=== PATIENT | male | born 1975 | race Caucasian/White ===

== ENCOUNTER 2023-07-18 20:08 | Inpatient (IN) | payer MEDICAID ==
[~2023-07-18] VITALS: Ht 175.3 cm; Wt 69.1 kg
[2023-07-18 21:24] LABS: BASOPHILS # (AUTO) 0.1 X10'3 (0-0.2); BASOPHILS % (AUTO) 0.9 % (0-1); EOSINOPHILS # (AUTO) 0.1 X10'3 (0-0.9); EOSINOPHILS % (AUTO) 1.1 % (0-6); LYMPHOCYTES # (AUTO) 0.5 X10'3 (1.1-4.8); LYMPHOCYTES % (AUTO) 3.7 % (21-51); MEAN CORPUSCULAR HEMOGLOBIN 28.9 PG (27.0-31.0); MEAN CORPUSCULAR VOLUME 90.4 FL (78-98); MEAN PLATELET VOLUME 7.6 FL (7.4-10.4); MONOCYTES # (AUTO) 0.7 X10'3 (0-0.9); MONOCYTES % (AUTO) 4.9 % (2-12); NEUTROPHILS # (AUTO) 11.9 X10'3 (1.8-7.7); NEUTROPHILS % (AUTO) 89.4 % (42-75); PLATELET COUNT 283 X10'3 (140-440); RED BLOOD COUNT 2.43 X10'6 (4.70-6.10); RED CELL DISTRIBUTION WIDTH 16.8 % (11.5-14.5); WHITE BLOOD COUNT 13.3 X10'3 (4.5-11.0)
[2023-07-18 21:28] LABS: HEMATOCRIT 21.9 % (42.0-52.0)
[2023-07-18 21:40] LABS: ALANINE AMINOTRANSFERASE 19 U/L (12-78); ALBUMIN 2.1 G/DL (3.4-5.0); ALBUMIN/GLOBULIN RATIO 0.6 (1.1-1.5); ALKALINE PHOSPHATASE 58 IU/L (46-116); ANION GAP 10 (8-16); ASPARTATE AMINO TRANSFERASE 25 U/L (10-37); BILIRUBIN,TOTAL 0.4 MG/DL (0.1-1.0); BLOOD UREA NITROGEN 51 MG/DL (7-18); BUN/CREATININE RATIO 6.7 (10.0-20.0); CALCIUM 8.2 MG/DL (8.5-10.1); CHLORIDE 98 MMOL/L (99-107); CREATININE 7.61 MG/DL (0.60-1.10); GLUCOSE 141 MG/DL (70-104); MAGNESIUM 1.9 MG/DL (1.5-2.4); PHOSPHORUS 4.7 MG/DL (2.3-4.5); POTASSIUM 4.5 MMOL/L (3.5-5.1); SODIUM 134 MMOL/L (135-145); TOTAL CARBON DIOXIDE 25.6 MMOL/L (24-32); TOTAL PROTEIN 5.9 G/DL (6.4-8.2); eCRCL 11 ML/MIN; eGFR 8 ML/MIN
[2023-07-19] VITALS (9 sets, daily range): BP systolic 104–149; BP diastolic 42–80; PULSE 68–96; RESP 9–19; TEMP 97.6–97.9; O2SAT 95–100
[2023-07-19] MEDS ORDERED: diphenhydrAMINE 50 mg/ml inj IV PRN (00:55)
[2023-07-19] MEDS ORDERED: diphenhydrAMINE 25mg capsule PO PRN (00:55)
[2023-07-19] MEDS ORDERED: acetaminophen 325mg tablet PO PRN ×2 (00:55)
[2023-07-19] MEDS ORDERED: morphine 2 MG/ML inj. syringe IV PRN (00:55)
[2023-07-19] MEDS ORDERED: ondansetron/PF 4mg/2ml inj IV PRN (00:55)
[2023-07-19] MEDS ORDERED: magnesium hydroxide 30ml (MOM) UD suspension PO PRN (00:55)
[2023-07-19] MEDS ORDERED: normal saline 1000ml 1,000 ML IV SCH (00:55)
[2023-07-19] MEDS ORDERED: metoclopramide 5 mg/ml inj IV PRN (00:55)
[2023-07-19] MEDS ORDERED: mag hydrox/Alum hydrox/simeth 30ml oral suspension PO PRN (00:55)
[2023-07-19] MEDS ORDERED: acetaminophen 650mg rectal suppository RC PRN (00:55)
[2023-07-19] MEDS ORDERED: ondansetron 4mg rapidly disintigrating tab PO PRN (00:55)
[2023-07-19] MEDS ORDERED: [UNRECOGNIZED DRUG - REMARK] IM ONE (03:00)
[2023-07-19] MEDS ORDERED: piperacillin/tazo 4.5gm/100ml 100 ML IV SCH (04:00)
[2023-07-19] MEDS: pantoprazole 40mg Tablet.DR PO SCH ×2 (07:03→08:07)
[2023-07-19] MEDS: docusate sod 100mg capsule PO SCH ×2 (07:03→20:00)
[2023-07-19] MEDS ORDERED: vancomycin/NS 1 GM ADD-VANTAGE 250 ML IV SCH (08:00)
[2023-07-19] MEDS: heparin, porcine 5000 units/ml vial SQ SCH ×2 (08:08→21:17)
[2023-07-19 08:27] LABS: APTT 33 SECONDS (22-32); INR 1.1 INR; PROTHROMBIN TIME 11.5 SECONDS (9.0-12.0)
[2023-07-19 08:37] LABS: C DIFF ANTIGEN POSITIVE (NEGATIVE); C DIFF SPECIMEN=DIARRHEA? ACCEPTABLE; C DIFFICILE TOXINS A&B POSITIVE (Neg)
[2023-07-19 08:41] LABS: MAGNESIUM 2.1 MG/DL (1.5-2.4); PHOSPHORUS 5.8 MG/DL (2.3-4.5)
[2023-07-19 08:55] LABS: HEMOGLOBIN A1C 5.7 % (4.5-6.2)
[2023-07-19 09:03] LABS: PRO BRAIN NATRIURETIC PEPTIDE > 30000 PG/ML (0-125)
[2023-07-19 09:34] LABS: ALANINE AMINOTRANSFERASE 19 U/L (12-78); ALBUMIN 2.2 G/DL (3.4-5.0); ALBUMIN/GLOBULIN RATIO 0.5 (1.1-1.5); ALKALINE PHOSPHATASE 64 IU/L (46-116); ASPARTATE AMINO TRANSFERASE 22 U/L (10-37); BILIRUBIN,TOTAL 0.4 MG/DL (0.1-1.0); BLOOD UREA NITROGEN 56 MG/DL (7-18); CALCIUM 8.6 MG/DL (8.5-10.1); CREATININE 8.05 MG/DL (0.60-1.10); GLUCOSE 132 MG/DL (70-104); TOTAL CARBON DIOXIDE 23.8 MMOL/L (24-32); TOTAL PROTEIN 6.5 G/DL (6.4-8.2); eCRCL 11 ML/MIN; eGFR 7 ML/MIN
[2023-07-19 10:14] LABS: ANION GAP 10 (8-16); CHLORIDE 99 MMOL/L (99-107); POTASSIUM 4.3 MMOL/L (3.5-5.1); SODIUM 133 MMOL/L (135-145)
[2023-07-19] MEDS ORDERED: VANCOMYCIN 125 MG/5 ML oral SOLN.RECON 5mL UD syringe (FIRVANQ) PO SCH (10:50)
[2023-07-19] MEDS ORDERED: heparin 1,000unit/ml 10ml vial 10 ML IV ONE (10:55)
[2023-07-19] MEDS ORDERED: EPOETIN ALFA-EPBX 20,000 UNIT/ML 1 ML MDV IV ONE (10:55)
[2023-07-19] MEDS ORDERED: albumin (human) 25% 100ml IV 100 ML IV PRN (10:55)
[2023-07-19] MEDS ORDERED: heparin 1,000 units/ml 10ml inj HE ONE ×2 (11:00)
[2023-07-19] MEDS ORDERED: dextrose 50%-water 50ml dispensing syringe IV PRN ×2 (11:20)
[2023-07-19] MEDS ORDERED: insulin Lispro (HumaLOG) vial - multi-dose SQ SCH (11:20)
[2023-07-19] MEDS ORDERED: vancomycin/NS 1 GM ADD-VANTAGE 250 ML IV PRN (11:20)
[2023-07-19] MEDS ORDERED: DEXTROSE 15 GM of carb/4 tabs (each vial/BOTTLE has 4 tablets) PO PRN ×2 (11:20)
[2023-07-19] MEDS ORDERED: glucagon, human recombinant 1mg kit SUBCUT PRN (11:20)
[2023-07-19] MEDS ORDERED: MESSAGE TO PHARMACY PO ONE (11:20)
[2023-07-19 11:50] LABS: BASOPHILS # (AUTO) 0.1 X10'3 (0-0.2); BASOPHILS % (AUTO) 1.2 % (0-1); HEMATOCRIT 28.1 % (42.0-52.0); LYMPHOCYTES # (AUTO) 0.7 X10'3 (1.1-4.8); LYMPHOCYTES % (AUTO) 6.5 % (21-51); MEAN CORPUSCULAR HEMOGLOBIN 29.3 PG (27.0-31.0); MEAN CORPUSCULAR HGB CONC 32.5 g/dL (33.0-36.5); MEAN CORPUSCULAR VOLUME 90.2 FL (78-98); MONOCYTES # (AUTO) 0.4 X10'3 (0-0.9); MONOCYTES % (AUTO) 4.1 % (2-12); NEUTROPHILS # (AUTO) 8.7 X10'3 (1.8-7.7); NEUTROPHILS % (AUTO) 79.2 % (42-75); PLATELET COUNT 318 X10'3 (140-440); RED BLOOD COUNT 3.12 X10'6 (4.70-6.10); RED CELL DISTRIBUTION WIDTH 16.8 % (11.5-14.5); WHITE BLOOD COUNT 10.9 X10'3 (4.5-11.0)
[2023-07-19 11:52] LABS: HEMOGLOBIN 9.1 g/dl (14.0-17.9)
[2023-07-19] MEDS ORDERED: temazepam 15mg capsule PO PRN (21:00)
[2023-07-19] MEDS: insulin glargine (Lantus) pen - multi-dose SQ SCH (21:00)
[2023-07-19] MEDS: VANCOMYCIN 125 MG/5 ML oral SOLN.RECON 5mL UD syringe (FIRVANQ) PO SCH (21:17)
[2023-07-19] MEDS: HYDROcodone/acetaminophen 5mg/325mg tablet PO PRN (21:19)
[2023-07-20] MEDS: VANCOMYCIN 125 MG/5 ML oral SOLN.RECON 5mL UD syringe (FIRVANQ) PO SCH ×4 (02:00→20:10)
[2023-07-20 06:30] VITALS: BP 140/48; PULSE 98; RESP 14; TEMP 97.8; O2SAT 99
[2023-07-20 07:20] LABS: BASOPHILS # (AUTO) 0.1 X10'3 (0-0.2); BASOPHILS % (AUTO) 1.6 % (0-1); EOSINOPHILS # (AUTO) 1.4 X10'3 (0-0.9); EOSINOPHILS % (AUTO) 21.3 % (0-6); HEMATOCRIT 26.3 % (42.0-52.0); HEMOGLOBIN 8.6 g/dl (14.0-17.9); LYMPHOCYTES # (AUTO) 0.7 X10'3 (1.1-4.8); LYMPHOCYTES % (AUTO) 11.1 % (21-51); MEAN CORPUSCULAR HEMOGLOBIN 29.3 PG (27.0-31.0); MEAN CORPUSCULAR HGB CONC 32.6 g/dL (33.0-36.5); MEAN CORPUSCULAR VOLUME 89.8 FL (78-98); MEAN PLATELET VOLUME 8.1 FL (7.4-10.4); MONOCYTES # (AUTO) 0.5 X10'3 (0-0.9); MONOCYTES % (AUTO) 7.6 % (2-12); NEUTROPHILS # (AUTO) 3.7 X10'3 (1.8-7.7); NEUTROPHILS % (AUTO) 58.4 % (42-75); PLATELET COUNT 255 X10'3 (140-440); RED BLOOD COUNT 2.93 X10'6 (4.70-6.10); RED CELL DISTRIBUTION WIDTH 16.9 % (11.5-14.5); WHITE BLOOD COUNT 6.4 X10'3 (4.5-11.0)
[2023-07-20 07:56] LABS: ALANINE AMINOTRANSFERASE 18 U/L (12-78); ALBUMIN 1.9 G/DL (3.4-5.0); ALBUMIN/GLOBULIN RATIO 0.5 (1.1-1.5); ALKALINE PHOSPHATASE 53 IU/L (46-116); ANION GAP 8 (8-16); ASPARTATE AMINO TRANSFERASE 27 U/L (10-37); BILIRUBIN,TOTAL 0.2 MG/DL (0.1-1.0); BLOOD UREA NITROGEN 28 MG/DL (7-18); BUN/CREATININE RATIO 5.3 (10.0-20.0); CALCIUM 8.5 MG/DL (8.5-10.1); CHLORIDE 103 MMOL/L (99-107); CHOL/HDL RATIO 3.2 (0.00-4.99); CHOLESTEROL 101 MG/DL (0-200); CREATININE 5.33 MG/DL (0.60-1.10); GLUCOSE 126 MG/DL (70-104); HDL CHOLESTEROL 32 MG/DL (35-60); LDL CHOLESTEROL 44 MG/DL (50-100); POTASSIUM 4.4 MMOL/L (3.5-5.1); SODIUM 138 MMOL/L (135-145); TOTAL CARBON DIOXIDE 26.7 MMOL/L (24-32); TOTAL PROTEIN 6.1 G/DL (6.4-8.2); TRIGLYCERIDES 108 MG/DL (20-135); eCRCL 16 ML/MIN; eGFR 12 ML/MIN
[2023-07-20] MEDS: heparin, porcine 5000 units/ml vial SQ SCH ×2 (08:00→20:09)
[2023-07-20] MEDS: docusate sod 100mg capsule PO SCH ×2 (08:00→19:58)
[2023-07-20] MEDS: pantoprazole 40mg Tablet.DR PO SCH (10:30)
[2023-07-20] MEDS: HYDROcodone/acetaminophen 5mg/325mg tablet PO PRN (10:31)
[2023-07-20 10:45] VITALS: BP 142/71; PULSE 100; RESP 12; TEMP 97.6; O2SAT 99
[2023-07-20 10:54] LABS: TOTAL CELLS COUNTED 100
[2023-07-20 10:55] LABS: ANISOCYTOSIS 1+; PLATELET ESTIMATE NORMAL
[2023-07-20 15:00] VITALS: BP 140/79; PULSE 103; RESP 14; TEMP 97.6; O2SAT 98
[2023-07-20] MEDS ORDERED: METO10TA3 PO (16:22)
[2023-07-20] MEDS ORDERED: PANT40TA54 PO (16:22)
[2023-07-20] MEDS ORDERED: HYDR100T27 PO (16:22)
[2023-07-20] MEDS ORDERED: GABA800T11 PO (16:22)
[2023-07-20] MEDS ORDERED: HYDR-3973 PO (16:22)
[2023-07-20] MEDS ORDERED: PREG200C29 PO (16:22)
[2023-07-20] MEDS ORDERED: AMIT50TA15 PO (16:22)
[2023-07-20] MEDS ORDERED: INSU100V49 SQ (16:22)
[2023-07-20] MEDS ORDERED: HYDR-3927 PO (16:22)
[2023-07-20] MEDS ORDERED: ATOR40TA72 PO (16:22)
[2023-07-20] MEDS ORDERED: INSU100I31 SQ (16:22)
[2023-07-20] MEDS ORDERED: FLUO-167 PO (16:22)
[2023-07-20] MEDS ORDERED: CLOP75TA34 PO (16:22)
[2023-07-20] MEDS ORDERED: ALBU18HF2 INH (16:22)
[2023-07-20] MEDS ORDERED: ASPI-1397 PO (16:22)
[2023-07-20] MEDS ORDERED: METO50TA16 (16:47)
[2023-07-20] MEDS ORDERED: PHO667C PO (16:47)
[2023-07-20] MEDS ORDERED: SACU1TAB7 PO (16:47)
[2023-07-20] MEDS ORDERED: CLON0.1T2 PO (16:47)
[2023-07-20 18:00] VITALS: BP 145/78; PULSE 70; RESP 20; TEMP 97.8; O2SAT 92
[2023-07-20] MEDS ORDERED: pantoprazole 40mg Tablet.DR PO SCH (18:05)
[2023-07-20] MEDS ORDERED: albuterol 2.5 MG/3 ML nebule NEB PRN (18:05)
[2023-07-20] MEDS: sacubitril/valsartan 49mg-51mg tablet PO SCH (20:10)
[2023-07-20] MEDS: clopidogrel 75mg tablet PO SCH (20:10)
[2023-07-20] MEDS: insulin glargine (Lantus) pen - multi-dose SQ SCH (21:00)
[2023-07-20] MEDS: amitriptyline 50mg tablet PO SCH (21:00)
[2023-07-20] MEDS: atorvastatin 20mg tablet PO SCH (21:00)
[2023-07-20 22:00] VITALS: BP 145/89; PULSE 80; RESP 20; TEMP 97.8; O2SAT 96
[2023-07-21] VITALS (14 sets, daily range): BP systolic 100–152; BP diastolic 73–92; PULSE 100–118; RESP 14–18; TEMP 97.4–99.3; O2SAT 94–100
[2023-07-21] MEDS: VANCOMYCIN 125 MG/5 ML oral SOLN.RECON 5mL UD syringe (FIRVANQ) PO SCH ×4 (01:28→19:34)
[2023-07-21] MEDS: VANCOMYCIN LEVEL IV SCH (03:00)
[2023-07-21] MEDS: docusate sod 100mg capsule PO SCH ×2 (08:00→19:36)
[2023-07-21] MEDS ORDERED: albumin (human) 25% 100ml IV 100 ML IV PRN (08:00)
[2023-07-21] MEDS ORDERED: heparin 1,000unit/ml 10ml vial 10 ML IV ONE (08:00)
[2023-07-21] MEDS: sacubitril/valsartan 49mg-51mg tablet PO SCH ×2 (08:00→19:35)
[2023-07-21] MEDS ORDERED: EPOETIN ALFA-EPBX 20,000 UNIT/ML 1 ML MDV IV ONE (08:00)
[2023-07-21] MEDS: aspirin 81mg, enteric-coated 1 TAB TABLET.DR PO SCH (08:06)
[2023-07-21] MEDS: pantoprazole 40mg Tablet.DR PO SCH (08:06)
[2023-07-21] MEDS: heparin, porcine 5000 units/ml vial SQ SCH ×2 (08:06→19:31)
[2023-07-21] MEDS: clopidogrel 75mg tablet PO SCH (08:06)
[2023-07-21] MEDS: FLUoxetine 20mg capsule PO SCH (08:06)
[2023-07-21 08:19] LABS: BASOPHILS # (AUTO) 0.1 X10'3 (0-0.2); BASOPHILS % (AUTO) 1.5 % (0-1); EOSINOPHILS # (AUTO) 1.4 X10'3 (0-0.9); EOSINOPHILS % (AUTO) 19.7 % (0-6); HEMATOCRIT 25.1 % (42.0-52.0); HEMOGLOBIN 8.2 g/dl (14.0-17.9); LYMPHOCYTES # (AUTO) 1.2 X10'3 (1.1-4.8); MEAN CORPUSCULAR HEMOGLOBIN 29.2 PG (27.0-31.0); MEAN CORPUSCULAR HGB CONC 32.7 g/dL (33.0-36.5); MEAN CORPUSCULAR VOLUME 89.3 FL (78-98); MEAN PLATELET VOLUME 8.6 FL (7.4-10.4); MONOCYTES # (AUTO) 0.8 X10'3 (0-0.9); MONOCYTES % (AUTO) 11.5 % (2-12); NEUTROPHILS # (AUTO) 3.6 X10'3 (1.8-7.7); NEUTROPHILS % (AUTO) 50.3 % (42-75); PLATELET COUNT 214 X10'3 (140-440); RED BLOOD COUNT 2.81 X10'6 (4.70-6.10); RED CELL DISTRIBUTION WIDTH 16.9 % (11.5-14.5); WHITE BLOOD COUNT 7.1 X10'3 (4.5-11.0)
[2023-07-21 08:34] LABS: ALANINE AMINOTRANSFERASE 15 U/L (12-78); ALBUMIN 1.8 G/DL (3.4-5.0); ALBUMIN/GLOBULIN RATIO 0.4 (1.1-1.5); ALKALINE PHOSPHATASE 47 IU/L (46-116); ANION GAP 10 (8-16); ASPARTATE AMINO TRANSFERASE 18 U/L (10-37); BILIRUBIN,TOTAL 0.3 MG/DL (0.1-1.0); BLOOD UREA NITROGEN 35 MG/DL (7-18); BUN/CREATININE RATIO 5.8 (10.0-20.0); CALCIUM 8.4 MG/DL (8.5-10.1); CHLORIDE 103 MMOL/L (99-107); CREATININE 6.08 MG/DL (0.60-1.10); GLUCOSE 113 MG/DL (70-104); SODIUM 136 MMOL/L (135-145); TOTAL CARBON DIOXIDE 23.4 MMOL/L (24-32); VANCOMYCIN,RANDOM 13.4 ug/mL (20.0-30.0); eCRCL 14 ML/MIN; eGFR 10 ML/MIN
[2023-07-21 08:35] LABS: POTASSIUM 4.9 MMOL/L (3.5-5.1)
[2023-07-21] MEDS ORDERED: heparin 1,000 units/ml 10ml inj HE ONE ×2 (08:55)
[2023-07-21] MEDS ORDERED: vancomycin/NS 1 GM ADD-VANTAGE 250 ML IV ONE (09:55)
[2023-07-21 12:56] LABS: HBSAG SCREEN Negative (Negative)
[2023-07-21] MEDS: HYDROcodone/acetaminophen 5mg/325mg tablet PO PRN (19:33)
[2023-07-21] MEDS: insulin glargine (Lantus) pen - multi-dose SQ SCH (21:00)
[2023-07-21] MEDS: amitriptyline 50mg tablet PO SCH (21:35)
[2023-07-21] MEDS: atorvastatin 20mg tablet PO SCH (21:36)
[2023-07-22] VITALS (8 sets, daily range): BP systolic 100–159; BP diastolic 70–96; PULSE 94–105; RESP 12–18; TEMP 97.4–99.2; O2SAT 97–99
[2023-07-22] MEDS: VANCOMYCIN 125 MG/5 ML oral SOLN.RECON 5mL UD syringe (FIRVANQ) PO SCH ×4 (01:43→21:50)
[2023-07-22] MEDS: HYDROcodone/acetaminophen 5mg/325mg tablet PO PRN ×2 (01:49→21:50)
[2023-07-22 06:32] LABS: BASOPHILS # (AUTO) 0.1 X10'3 (0-0.2); BASOPHILS % (AUTO) 1.9 % (0-1); EOSINOPHILS # (AUTO) 1.2 X10'3 (0-0.9); EOSINOPHILS % (AUTO) 18.7 % (0-6); HEMATOCRIT 26.5 % (42.0-52.0); HEMOGLOBIN 8.4 g/dl (14.0-17.9); LYMPHOCYTES # (AUTO) 1.2 X10'3 (1.1-4.8); MEAN CORPUSCULAR HEMOGLOBIN 28.6 PG (27.0-31.0); MEAN CORPUSCULAR HGB CONC 31.8 g/dL (33.0-36.5); MEAN CORPUSCULAR VOLUME 90.1 FL (78-98); MEAN PLATELET VOLUME 8.4 FL (7.4-10.4); MONOCYTES # (AUTO) 0.7 X10'3 (0-0.9); NEUTROPHILS # (AUTO) 3.3 X10'3 (1.8-7.7); NEUTROPHILS % (AUTO) 50.4 % (42-75); PLATELET COUNT 193 X10'3 (140-440); RED BLOOD COUNT 2.94 X10'6 (4.70-6.10); RED CELL DISTRIBUTION WIDTH 16.8 % (11.5-14.5); WHITE BLOOD COUNT 6.5 X10'3 (4.5-11.0)
[2023-07-22 07:17] LABS: ALANINE AMINOTRANSFERASE 11 U/L (12-78); ALBUMIN 1.9 G/DL (3.4-5.0); ALBUMIN/GLOBULIN RATIO 0.4 (1.1-1.5); ALKALINE PHOSPHATASE 51 IU/L (46-116); ANION GAP 8 (8-16); ASPARTATE AMINO TRANSFERASE 30 U/L (10-37); BILIRUBIN,TOTAL 0.2 MG/DL (0.1-1.0); BLOOD UREA NITROGEN 24 MG/DL (7-18); BUN/CREATININE RATIO 5.3 (10.0-20.0); CALCIUM 8.7 MG/DL (8.5-10.1); CHLORIDE 103 MMOL/L (99-107); CREATININE 4.53 MG/DL (0.60-1.10); GLUCOSE 121 MG/DL (70-104); POTASSIUM 4.8 MMOL/L (3.5-5.1); SODIUM 137 MMOL/L (135-145); TOTAL CARBON DIOXIDE 25.9 MMOL/L (24-32); TOTAL PROTEIN 6.3 G/DL (6.4-8.2); VANCOMYCIN,RANDOM 23.1 ug/mL (20.0-30.0); eCRCL 19 ML/MIN; eGFR 14 ML/MIN
[2023-07-22 08:21] LABS: % IRON SATURATION 40 % (11-46); IRON 53 UG/DL (53-167); TOTAL IRON BINDING CAPACITY 133 UG/DL (259-388)
[2023-07-22] MEDS: VANCOMYCIN LEVEL IV SCH (08:24)
[2023-07-22] MEDS ORDERED: docusate sod 100mg capsule PO PRN (08:25)
[2023-07-22 09:26] LABS: FERRITIN 568 NG/ML (26-388)
[2023-07-22] MEDS: sacubitril/valsartan 49mg-51mg tablet PO SCH ×2 (10:42→19:52)
[2023-07-22] MEDS: heparin, porcine 5000 units/ml vial SQ SCH ×2 (10:42→21:50)
[2023-07-22] MEDS: aspirin 81mg, enteric-coated 1 TAB TABLET.DR PO SCH (10:43)
[2023-07-22] MEDS: clopidogrel 75mg tablet PO SCH (10:43)
[2023-07-22] MEDS: pantoprazole 40mg Tablet.DR PO SCH (10:43)
[2023-07-22] MEDS: FLUoxetine 20mg capsule PO SCH (10:43)
[2023-07-22] MEDS: insulin glargine (Lantus) pen - multi-dose SQ SCH (19:51)
[2023-07-22] MEDS: amitriptyline 50mg tablet PO SCH (21:49)
[2023-07-22] MEDS: atorvastatin 20mg tablet PO SCH (21:49)
[2023-07-23] VITALS (16 sets, daily range): BP systolic 92–154; BP diastolic 54–91; PULSE 90–118; RESP 10–18; TEMP 97.3–98.4; O2SAT 97–100
[2023-07-23] MEDS: VANCOMYCIN 125 MG/5 ML oral SOLN.RECON 5mL UD syringe (FIRVANQ) PO SCH ×4 (02:13→20:30)
[2023-07-23] MEDS: VANCOMYCIN LEVEL IV SCH (03:00)
[2023-07-23 06:47] LABS: BASOPHILS # (AUTO) 0.1 X10'3 (0-0.2); BASOPHILS % (AUTO) 1.9 % (0-1); EOSINOPHILS # (AUTO) 1.4 X10'3 (0-0.9); HEMATOCRIT 27.1 % (42.0-52.0); HEMOGLOBIN 8.4 g/dl (14.0-17.9); LYMPHOCYTES # (AUTO) 1.2 X10'3 (1.1-4.8); LYMPHOCYTES % (AUTO) 15.1 % (21-51); MEAN CORPUSCULAR HEMOGLOBIN 28.7 PG (27.0-31.0); MEAN CORPUSCULAR HGB CONC 30.9 g/dL (33.0-36.5); MEAN CORPUSCULAR VOLUME 92.6 FL (78-98); MEAN PLATELET VOLUME 8.7 FL (7.4-10.4); MONOCYTES # (AUTO) 0.7 X10'3 (0-0.9); MONOCYTES % (AUTO) 8.5 % (2-12); NEUTROPHILS # (AUTO) 4.6 X10'3 (1.8-7.7); NEUTROPHILS % (AUTO) 57.5 % (42-75); PLATELET COUNT 209 X10'3 (140-440); RED BLOOD COUNT 2.92 X10'6 (4.70-6.10); RED CELL DISTRIBUTION WIDTH 16.8 % (11.5-14.5)
[2023-07-23 06:51] LABS: ALANINE AMINOTRANSFERASE 15 U/L (12-78); ALBUMIN/GLOBULIN RATIO 0.5 (1.1-1.5); ALKALINE PHOSPHATASE 52 IU/L (46-116); ANION GAP 9 (8-16); ASPARTATE AMINO TRANSFERASE 15 U/L (10-37); BILIRUBIN,TOTAL 0.3 MG/DL (0.1-1.0); BLOOD UREA NITROGEN 32 MG/DL (7-18); BUN/CREATININE RATIO 6.4 (10.0-20.0); CALCIUM 8.5 MG/DL (8.5-10.1); CHLORIDE 104 MMOL/L (99-107); CREATININE 4.99 MG/DL (0.60-1.10); GLUCOSE 119 MG/DL (70-104); POTASSIUM 4.9 MMOL/L (3.5-5.1); SODIUM 137 MMOL/L (135-145); TOTAL CARBON DIOXIDE 23.9 MMOL/L (24-32); VANCOMYCIN,RANDOM 20.9 ug/mL (20.0-30.0); eCRCL 17 ML/MIN; eGFR 13 ML/MIN
[2023-07-23] MEDS: pantoprazole 40mg Tablet.DR PO SCH (07:32)
[2023-07-23] MEDS: clopidogrel 75mg tablet PO SCH (07:33)
[2023-07-23] MEDS: aspirin 81mg, enteric-coated 1 TAB TABLET.DR PO SCH (07:33)
[2023-07-23] MEDS: sacubitril/valsartan 49mg-51mg tablet PO SCH ×2 (07:33→20:20)
[2023-07-23] MEDS: FLUoxetine 20mg capsule PO SCH (07:33)
[2023-07-23] MEDS: heparin, porcine 5000 units/ml vial SQ SCH ×2 (07:34→20:20)
[2023-07-23] MEDS ORDERED: heparin 1,000unit/ml 10ml vial 10 ML IV ONE (10:50)
[2023-07-23] MEDS ORDERED: EPOETIN ALFA-EPBX 20,000 UNIT/ML 1 ML MDV IV ONE (10:50)
[2023-07-23] MEDS ORDERED: albumin (human) 25% 100ml IV 100 ML IV PRN (10:50)
[2023-07-23] MEDS ORDERED: heparin 1,000 units/ml 10ml inj HE ONE ×2 (11:40)
[2023-07-23] MEDS: HYDROcodone/acetaminophen 5mg/325mg tablet PO PRN (15:47)
[2023-07-23] MEDS: amitriptyline 50mg tablet PO SCH (20:20)
[2023-07-23] MEDS: atorvastatin 20mg tablet PO SCH (20:20)
[2023-07-23] MEDS: insulin glargine (Lantus) pen - multi-dose SQ SCH (20:21)
[2023-07-24] VITALS (8 sets, daily range): BP systolic 141–163; BP diastolic 59–96; PULSE 95–110; RESP 12–20; TEMP 97.8–99.6; O2SAT 98–99
[2023-07-24] MEDS: VANCOMYCIN 125 MG/5 ML oral SOLN.RECON 5mL UD syringe (FIRVANQ) PO SCH ×4 (01:04→20:01)
[2023-07-24] MEDS: VANCOMYCIN LEVEL IV SCH (03:00)
[2023-07-24 06:08] LABS: BASOPHILS # (AUTO) 0.1 X10'3 (0-0.2); BASOPHILS % (AUTO) 1.3 % (0-1); EOSINOPHILS # (AUTO) 1.5 X10'3 (0-0.9); HEMATOCRIT 27.7 % (42.0-52.0); HEMOGLOBIN 8.7 g/dl (14.0-17.9); LYMPHOCYTES # (AUTO) 1.3 X10'3 (1.1-4.8); LYMPHOCYTES % (AUTO) 12.8 % (21-51); MEAN CORPUSCULAR HEMOGLOBIN 29.6 PG (27.0-31.0); MEAN CORPUSCULAR HGB CONC 31.6 g/dL (33.0-36.5); MEAN CORPUSCULAR VOLUME 93.7 FL (78-98); MEAN PLATELET VOLUME 8.3 FL (7.4-10.4); MONOCYTES # (AUTO) 0.7 X10'3 (0-0.9); MONOCYTES % (AUTO) 7.1 % (2-12); NEUTROPHILS # (AUTO) 6.8 X10'3 (1.8-7.7); NEUTROPHILS % (AUTO) 64.8 % (42-75); PLATELET COUNT 228 X10'3 (140-440); RED BLOOD COUNT 2.95 X10'6 (4.70-6.10); RED CELL DISTRIBUTION WIDTH 16.5 % (11.5-14.5); WHITE BLOOD COUNT 10.5 X10'3 (4.5-11.0)
[2023-07-24 06:23] LABS: ALANINE AMINOTRANSFERASE 13 U/L (12-78); ALBUMIN/GLOBULIN RATIO 0.4 (1.1-1.5); ALKALINE PHOSPHATASE 55 IU/L (46-116); ANION GAP 7 (8-16); BILIRUBIN,TOTAL 0.3 MG/DL (0.1-1.0); BLOOD UREA NITROGEN 21 MG/DL (7-18); BUN/CREATININE RATIO 5.4 (10.0-20.0); CALCIUM 8.4 MG/DL (8.5-10.1); CHLORIDE 102 MMOL/L (99-107); CREATININE 3.87 MG/DL (0.60-1.10); GLUCOSE 126 MG/DL (70-104); SODIUM 136 MMOL/L (135-145); TOTAL CARBON DIOXIDE 26.7 MMOL/L (24-32); TOTAL PROTEIN 6.5 G/DL (6.4-8.2); VANCOMYCIN,RANDOM 15.1 ug/mL (20.0-30.0); eCRCL 22 ML/MIN; eGFR 17 ML/MIN
[2023-07-24 06:32] LABS: ASPARTATE AMINO TRANSFERASE 26 U/L (10-37); POTASSIUM 4.6 MMOL/L (3.5-5.1)
[2023-07-24] MEDS: pantoprazole 40mg Tablet.DR PO SCH (07:43)
[2023-07-24] MEDS: FLUoxetine 20mg capsule PO SCH (07:44)
[2023-07-24] MEDS: aspirin 81mg, enteric-coated 1 TAB TABLET.DR PO SCH (07:44)
[2023-07-24] MEDS: clopidogrel 75mg tablet PO SCH (07:44)
[2023-07-24] MEDS: sacubitril/valsartan 49mg-51mg tablet PO SCH ×2 (07:44→20:01)
[2023-07-24] MEDS: heparin, porcine 5000 units/ml vial SQ SCH ×2 (07:46→20:01)
[2023-07-24] MEDS ORDERED: metoclopramide 5 mg/ml inj IV PRN (16:55)
[2023-07-24] MEDS: amitriptyline 50mg tablet PO SCH (20:01)
[2023-07-24] MEDS: atorvastatin 20mg tablet PO SCH (20:01)
[2023-07-24] MEDS: insulin glargine (Lantus) pen - multi-dose SQ SCH (20:08)
[2023-07-24] MEDS ORDERED: HYDROcodone/acetaminophen 10/325mg tab PO PRN (20:15)
[2023-07-25] VITALS (9 sets, daily range): BP systolic 90–154; BP diastolic 56–85; PULSE 93–110; RESP 14–18; TEMP 97.5–98.1; O2SAT 97–100
[2023-07-25] MEDS: VANCOMYCIN 125 MG/5 ML oral SOLN.RECON 5mL UD syringe (FIRVANQ) PO SCH ×3 (01:07→15:42)
[2023-07-25] MEDS: VANCOMYCIN LEVEL IV SCH (01:09)
[2023-07-25] MEDS ORDERED: EPOETIN ALFA-EPBX 20,000 UNIT/ML 1 ML MDV IV ONE (08:00)
[2023-07-25] MEDS ORDERED: heparin 1,000unit/ml 10ml vial 10 ML IV ONE (08:00)
[2023-07-25] MEDS ORDERED: albumin (human) 25% 100ml IV 100 ML IV PRN (08:00)
[2023-07-25] MEDS ORDERED: heparin 1,000 units/ml 10ml inj HE ONE ×2 (08:40)
[2023-07-25] MEDS: clopidogrel 75mg tablet PO SCH (08:58)
[2023-07-25] MEDS: aspirin 81mg, enteric-coated 1 TAB TABLET.DR PO SCH (08:58)
[2023-07-25] MEDS: heparin, porcine 5000 units/ml vial SQ SCH (08:58)
[2023-07-25] MEDS: FLUoxetine 20mg capsule PO SCH (08:58)
[2023-07-25] MEDS: sacubitril/valsartan 49mg-51mg tablet PO SCH (08:59)
[2023-07-25 09:28] LABS: BASOPHILS # (AUTO) 0.1 X10'3 (0-0.2); BASOPHILS % (AUTO) 1.4 % (0-1); EOSINOPHILS # (AUTO) 1.4 X10'3 (0-0.9); EOSINOPHILS % (AUTO) 15.6 % (0-6); HEMATOCRIT 24.2 % (42.0-52.0); HEMOGLOBIN 7.8 g/dl (14.0-17.9); LYMPHOCYTES # (AUTO) 1.4 X10'3 (1.1-4.8); LYMPHOCYTES % (AUTO) 15.3 % (21-51); MEAN CORPUSCULAR HEMOGLOBIN 28.8 PG (27.0-31.0); MEAN CORPUSCULAR HGB CONC 32.3 g/dL (33.0-36.5); MEAN PLATELET VOLUME 8.2 FL (7.4-10.4); MONOCYTES # (AUTO) 0.7 X10'3 (0-0.9); MONOCYTES % (AUTO) 7.6 % (2-12); NEUTROPHILS # (AUTO) 5.4 X10'3 (1.8-7.7); NEUTROPHILS % (AUTO) 60.1 % (42-75); PLATELET COUNT 279 X10'3 (140-440); RED BLOOD COUNT 2.72 X10'6 (4.70-6.10); RED CELL DISTRIBUTION WIDTH 16.1 % (11.5-14.5)
[2023-07-25 09:44] LABS: ALANINE AMINOTRANSFERASE 18 U/L (12-78); ALBUMIN 2.1 G/DL (3.4-5.0); ALBUMIN/GLOBULIN RATIO 0.5 (1.1-1.5); ALKALINE PHOSPHATASE 58 IU/L (46-116); ANION GAP 8 (8-16); ASPARTATE AMINO TRANSFERASE 15 U/L (10-37); BILIRUBIN,TOTAL 0.3 MG/DL (0.1-1.0); BLOOD UREA NITROGEN 29 MG/DL (7-18); BUN/CREATININE RATIO 5.7 (10.0-20.0); CALCIUM 8.7 MG/DL (8.5-10.1); CHLORIDE 103 MMOL/L (99-107); CREATININE 5.13 MG/DL (0.60-1.10); GLUCOSE 144 MG/DL (70-104); POTASSIUM 4.1 MMOL/L (3.5-5.1); SODIUM 139 MMOL/L (135-145); TOTAL CARBON DIOXIDE 27.9 MMOL/L (24-32); TOTAL PROTEIN 6.3 G/DL (6.4-8.2); eCRCL 17 ML/MIN; eGFR 12 ML/MIN
[2023-07-25] MEDS ORDERED: VANC125C11 PO (10:16)
[2023-07-25] MEDS ORDERED: vancomycin/NS 1 GM ADD-VANTAGE 250 ML X 1 DOSE IV ONE (12:00)
== END 2023-07-25 18:40 | disposition home or self-care (01) | DRG 720 ==
LOC: ER 20:09 → ED HOLD 07-19 01:03 → CMPBEDREQ 07-19 14:46 → PCU 3S 07-19 15:44
PROVIDERS: ADMIT Family Medicine; ATTEND Family Medicine
PROC: 5A1D70Z Performance of Urinary Filtration, Intermittent, Less than 6 Hours Per Day (ICD-10-PCS; principal; 2023-07-19)
PROC: 5A1D70Z Performance of Urinary Filtration, Intermittent, Less than 6 Hours Per Day (ICD-10-PCS; 2023-07-21)
PROC: 5A1D70Z Performance of Urinary Filtration, Intermittent, Less than 6 Hours Per Day (ICD-10-PCS; 2023-07-23)
PROC: 5A1D70Z Performance of Urinary Filtration, Intermittent, Less than 6 Hours Per Day (ICD-10-PCS; 2023-07-25)
DX: A41.9 Sepsis, unspecified organism (principal); G93.49 Other encephalopathy; I13.2 Hypertensive heart and chronic kidney disease with heart failure and with stage 5 chronic kidney disease, or end stage renal disease; A04.72 Enterocolitis due to Clostridium difficile, not specified as recurrent; D63.1 Anemia in chronic kidney disease; E87.1 Hypo-osmolality and hyponatremia; E88.09 Other disorders of plasma-protein metabolism, not elsewhere classified; N18.6 End stage renal disease; I50.32 Chronic diastolic (congestive) heart failure; L03.116 Cellulitis of left lower limb; L03.115 Cellulitis of right lower limb; E10.52 Type 1 diabetes mellitus with diabetic peripheral angiopathy with gangrene; E10.22 Type 1 diabetes mellitus with diabetic chronic kidney disease; E86.1 Hypovolemia; Z66 Do not resuscitate; Z79.4 Long term (current) use of insulin; Z99.2 Dependence on renal dialysis; Z88.1 Allergy status to other antibiotic agents; T42.6X5A Adverse effect of other antiepileptic and sedative-hypnotic drugs, initial encounter; Y92.89 Other specified places as the place of occurrence of the external cause
CPT/HCPCS: 36415; 71045; 80053; 80061; 80202; 82728; 82948; 83036; 83540; 83550; 83605; 83735; 83880; 83970; 84100; 84145; 85007; 85025; 85610; 85730; 87040; 87081; 87324; 87340; 87449; 93306; 93925; 97116; 97161; 97530; 99285; A4615; A6213; A6449; E1594; G0257; G0378; J1644; J1815; J2270; J2543; J3370; J7030; J7040; Q4081

== ENCOUNTER 2023-08-08 19:20 | Inpatient (IN) | payer MEDICAID ==
[~2023-08-08] VITALS: Ht 170.2 cm; Wt 81.2 kg
[~2023-08-08 19:20] MED LIST: ALBU18HF2 INH; AMIT50TA15 PO; ASPI-1397 PO; ATOR40TA72 PO; CLON0.1T2 PO; CLOP75TA34 PO; FLUO-167 PO; GABA800T11 PO; HYDR-3927 PO; HYDR-3973 PO; HYDR100T27 PO; INSU100I31 SQ; INSU100V49 SQ; METO10TA3 PO; METO50TA16; PANT40TA54 PO; PHO667C PO; PREG200C29 PO; SACU1TAB7 PO; VANC125C11 PO
[2023-08-08 22:16] LABS: BASOPHILS # (AUTO) 0.1 X10'3 (0-0.2); BASOPHILS % (AUTO) 1.8 % (0-1); EOSINOPHILS # (AUTO) 1.1 X10'3 (0-0.9); EOSINOPHILS % (AUTO) 15.5 % (0-6); HEMATOCRIT 24.2 % (42.0-52.0); HEMOGLOBIN 7.7 g/dl (14.0-17.9); LYMPHOCYTES # (AUTO) 0.9 X10'3 (1.1-4.8); LYMPHOCYTES % (AUTO) 13.7 % (21-51); MEAN CORPUSCULAR HEMOGLOBIN 28.8 PG (27.0-31.0); MEAN CORPUSCULAR HGB CONC 31.9 g/dL (33.0-36.5); MONOCYTES # (AUTO) 0.5 X10'3 (0-0.9); MONOCYTES % (AUTO) 6.9 % (2-12); NEUTROPHILS # (AUTO) 4.2 X10'3 (1.8-7.7); NEUTROPHILS % (AUTO) 62.1 % (42-75); PLATELET COUNT 254 X10'3 (140-440); RED BLOOD COUNT 2.69 X10'6 (4.70-6.10); RED CELL DISTRIBUTION WIDTH 16.7 % (11.5-14.5); WHITE BLOOD COUNT 6.8 X10'3 (4.5-11.0)
[2023-08-08 22:30] LABS: ALANINE AMINOTRANSFERASE 21 U/L (12-78); ALBUMIN 2.5 G/DL (3.4-5.0); ALBUMIN/GLOBULIN RATIO 0.5 (1.1-1.5); ALKALINE PHOSPHATASE 75 IU/L (46-116); ANION GAP 6 (8-16); ASPARTATE AMINO TRANSFERASE 32 U/L (10-37); BILIRUBIN,TOTAL 0.4 MG/DL (0.1-1.0); BLOOD UREA NITROGEN 18 MG/DL (7-18); BUN/CREATININE RATIO 5.3 (10.0-20.0); CALCIUM 8.4 MG/DL (8.5-10.1); CHLORIDE 98 MMOL/L (99-107); CREATININE 3.41 MG/DL (0.60-1.10); GLUCOSE 179 MG/DL (70-104); LIPASE 20 U/L (16-77); POTASSIUM 3.6 MMOL/L (3.5-5.1); SODIUM 135 MMOL/L (135-145); TOTAL CARBON DIOXIDE 31.2 MMOL/L (24-32); TOTAL PROTEIN 7.2 G/DL (6.4-8.2); eCRCL 25 ML/MIN; eGFR 19 ML/MIN
[2023-08-08 23:36] LABS: ABG BASE EXCESS 6.9 mmol/L (-2.0-2.0); ABG HCO3 30.4 mmol/L (22.0-26.0); ABG OXYGEN SATURATION 90.4 % (94-97); ABG PCO2 (T) 38.3 mmHg (35.0-48.0); ABG PH (T) 7.517 (7.340-7.440); ABG PO2 (T) 53.1 mmHg (75.0-100.0); FCOHb 0.4 % (0.0-3.9); FHHb 9.5 % (0.0-5.0); FMetHb 0.3 % (0.0-1.5); FO2Hb 89.8 % (94-97); MODE ROOM AIR; PATIENT TEMPERATURE 36.8; TOTAL HEMOGLOBIN 7.7 G/dl (14.0-17.9)
[2023-08-09] MEDS ORDERED: magnesium 4gm in 100ml NS 100 ML IV PRN (00:55)
[2023-08-09] MEDS ORDERED: ondansetron/PF 4mg/2ml inj IV PRN (00:55)
[2023-08-09] MEDS ORDERED: normal saline 1000ml 1,000 ML IV SCH (00:55)
[2023-08-09] MEDS ORDERED: potassium Cl 40MEQ/1/2NS 520ml 520 ML IV PRN (00:55)
[2023-08-09] MEDS ORDERED: potassium Cl 20 mEq SR tablet PO PRN ×2 (00:55)
[2023-08-09] MEDS ORDERED: magnesium 2GM in 50ml NS 50 ML IV PRN (00:55)
[2023-08-09] MEDS ORDERED: magnesium Cl slow-release 64mg tablet PO PRN (00:55)
[2023-08-09] MEDS ORDERED: acetaminophen 325mg tablet PO PRN ×2 (00:55)
[2023-08-09] MEDS ORDERED: MESSAGE TO PHARMACY PO ONE (02:35)
[2023-08-09] MEDS ORDERED: dextrose 50%-water 50ml dispensing syringe IV PRN ×2 (02:35)
[2023-08-09] MEDS ORDERED: insulin Lispro (HumaLOG) vial - multi-dose SQ SCH (02:35)
[2023-08-09] MEDS ORDERED: DEXTROSE 15 GM of carb/4 tabs (each vial/BOTTLE has 4 tablets) PO PRN ×2 (02:35)
[2023-08-09] MEDS ORDERED: glucagon, human recombinant 1mg kit SUBCUT PRN (02:35)
[2023-08-09 05:15] VITALS: TEMP 98.4
[2023-08-09] MEDS ORDERED: heparin, porcine 5000 units/ml vial SQ SCH (08:00)
[2023-08-09 09:47] LABS: % IRON SATURATION 12 % (11-46); IRON 23 UG/DL (53-167); TOTAL IRON BINDING CAPACITY 191 UG/DL (259-388)
[2023-08-09 10:06] VITALS: BP 141/87; PULSE 111; RESP 16; O2SAT 98
[2023-08-09] MEDS ORDERED: atorvastatin 20mg tablet PO SCH (13:10)
[2023-08-09] MEDS ORDERED: clopidogrel 75mg tablet PO SCH (13:10)
[2023-08-09] MEDS ORDERED: aspirin 81mg, enteric-coated 1 TAB TABLET.DR PO SCH (13:10)
[2023-08-09 14:47] LABS: CHOLESTEROL 106 MG/DL (0-200); HDL CHOLESTEROL 52 MG/DL (35-60); LDL CHOLESTEROL 40 MG/DL (50-100); TRIGLYCERIDES 39 MG/DL (20-135)
[2023-08-09] MEDS ORDERED: metoprolol tartrate 50mg tablet PO SCH (20:00)
[2023-08-09] MEDS ORDERED: insulin glargine (Lantus) pen - multi-dose SQ SCH (21:00)
== END 2023-08-09 14:20 | disposition left against medical advice (07) | DRG 52 ==
LOC: ER 19:21 → ED HOLD 08-09 00:56 → PCU 3S 08-09 11:50
PROVIDERS: ADMIT Internal Medicine; ATTEND Internal Medicine
DX: G93.41 Metabolic encephalopathy (principal); I13.2 Hypertensive heart and chronic kidney disease with heart failure and with stage 5 chronic kidney disease, or end stage renal disease; N18.6 End stage renal disease; E11.22 Type 2 diabetes mellitus with diabetic chronic kidney disease; R09.02 Hypoxemia; Z53.21 Procedure and treatment not carried out due to patient leaving prior to being seen by health care provider; E11.621 Type 2 diabetes mellitus with foot ulcer; L97.509 Non-pressure chronic ulcer of other part of unspecified foot with unspecified severity; I50.9 Heart failure, unspecified; Z95.5 Presence of coronary angioplasty implant and graft; Z86.73 Personal history of transient ischemic attack (TIA), and cerebral infarction without residual deficits; Z95.2 Presence of prosthetic heart valve; Z99.2 Dependence on renal dialysis; Z79.01 Long term (current) use of anticoagulants; Z91.048 Other nonmedicinal substance allergy status; Z79.82 Long term (current) use of aspirin; Z79.4 Long term (current) use of insulin; Z79.899 Other long term (current) drug therapy; Z87.891 Personal history of nicotine dependence; Z82.49 Family history of ischemic heart disease and other diseases of the circulatory system; Z84.1 Family history of disorders of kidney and ureter
CPT/HCPCS: 36415; 36600; 70450; 71045; 71250; 74176; 80053; 80061; 82607; 82803; 82948; 83540; 83550; 83605; 83690; 84145; 85018; 85025; 87040; 93925; 99285; A6258; A6449; G0378; J1644; J1815; J7030

== ENCOUNTER 2023-08-09 15:51 | Emergency (ER) | payer MEDICAID | END 2023-08-09 18:24 | disposition left against medical advice (07) | LOC: ER 15:52 | DX: R63.1 Polydipsia (principal); Z53.21 Procedure and treatment not carried out due to patient leaving prior to being seen by health care provider ==